=== PATIENT | female | born 1995 | race Two or more races ===

== ENCOUNTER 2021-11-14 15:48 | Emergency (ER) | payer OTHER ==
[~2021-11-14] VITALS: Ht 157.5 cm; Wt 67.9 kg
[2021-11-14 15:53] VITALS: BP 121/66
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
== END 2021-11-14 17:02 | disposition home or self-care (01) ==
LOC: ER 15:48
DX: S33.5XXA Sprain of ligaments of lumbar spine, initial encounter (principal); V49.59XA Passenger injured in collision with other motor vehicles in traffic accident, initial encounter; Y92.488 Other paved roadways as the place of occurrence of the external cause; Y93.89 Activity, other specified; Y99.8 Other external cause status
CPT/HCPCS: 81025; 99282